=== PATIENT | male | born 1995 | race American Indian/Alaskan Native ===

== ENCOUNTER 2017-07-30 09:45 | Emergency (ER) | payer SELFPAY ==
[2017-07-30 09:57] VITALS: BP 111/53
[2017-07-30] MEDS ORDERED: XYLOCAINE 1% 20 mL INFILTRATI ONE (11:54)
[2017-07-30] MEDS ORDERED: BOOSTRIX IM ONE (11:54)
[2017-07-30] MEDS ORDERED: NACL 0.9% IR ONE (11:56)
--- NOTE | 2017-07-30 12:07 | Emergency Department Report ---
ED Laceration [facility] Chief Complaint: Wound/Laceration Stated Complaint: LEFT HAND FINGER PAIN Time Seen by Provider: 07/30/17 11:53 Occurred When: Today Severity: mild Tetanus Status: Not up to Date Laceration Symptoms: Yes Pain, No Foreign Body Sensation, No Numbness, No Weakness ED Review of Systems ROS: Stated complaint: LEFT HAND FINGER PAIN Other details as noted in HPI Constitutional: denies: chills, fever Eyes: denies: eye pain, eye discharge, vision change ENT: denies: ear pain, throat pain Respiratory: denies: cough, shortness of breath, wheezing Cardiovascular: denies: chest pain, palpitations Endocrine: no symptoms reported Gastrointestinal: denies: abdominal pain, nausea, diarrhea Genitourinary: denies: urgency, dysuria Musculoskeletal: other (laceration left 5th digit ulnar side ). denies: back pain, joint swelling, arthralgia Skin: denies: rash, lesions Neurological: denies: headache, weakness, paresthesias Psychiatric: denies: anxiety, depression Hematological/Lymphatic: denies: easy bleeding, easy bruising ED Past Medical Hx - Past Medical History Previous Medical History?: No - Surgical History Past Surgical History?: No - Social History Smoking Status: Never Smoker Substance Use Type: Alcohol - Medications Home Medications: Home Medications Medication Instructions Recorded Confirmed Last Taken Type Clindamycin [Clindamycin CAP] 300 mg PO BID #20 capsule 03/29/14 Unknown Rx Naproxen [Naprosyn] 250 mg PO BID #14 tablet 03/29/14 Unknown Rx traMADol [Ultram 50 MG tab] 50 mg PO Q6HR PRN #16 tablet 03/29/14 Unknown Rx Ciprofloxacin HCl [Ciprofloxacin 500 mg PO BID #14 tablet 06/23/14 Unknown Rx TAB] traMADol [Ultram] 50 mg PO Q8HR PRN #20 tablet 07/30/17 Unknown Rx Laceration Physical Exam - Exam General: Vital signs noted. No distress. Alert and acting appropriately. Wound Length (cm): 1 Laceration Location: Upper Extremity Laceration Exam: Yes Normal Distal CMS, No Foreign Body, No Exposed Tendon, Vessel, or Nerve, No Tendon Injury ED Course Vital Signs 07/30/17 09:54 Temperature 98.6 F Pulse Rate 59 L Respiratory 18 Rate Blood Pressure 111/53 O2 Sat by Pulse 99 Oximetry - Laceration /Wound Repair Left Volar Finger Wound Location: upper extremity Wound Length (cm): 1 Wound's Depth, Shape: superficial Wound Explored: clean Irrigated w/ Saline (ccs): 30 Betadine Prep?: Yes Anesthesia: 1% Lidocaine Volume Anesthetic (ccs): 2 Wound Debrided: minimal Wound Repaired With: sutures Suture Size/Type: 4:0, nylon Number of Sutures: 3 Layer Closure?: No Sterile Dressing Applied?: Yes Progress: left finger pinky lacaration versus sheet metal no foreign body on xray, rom intact flexion extension adduction abduction no nerve tendon or muscle involvement, laceration anesthesia with 1% lidocaine irrigated with 30 cc sterile saline, closed with 4.0 nylon x 3 sutures all bleeding controlled sterile dressing applied pt tolerated procedure with minimal distress. pt given wound care instructions verbalized understanding of same. 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 Critical care attestation.: If time is entered above; I have spent that time in minutes in the direct care of this critically ill patient, excluding procedure time. ED Disposition Clinical Impression: Laceration of finger of left hand Qualifiers: Encounter type: initial encounter Finger: little finger Damage to nail status: without damage Foreign body presence: without foreign body Qualified Code(s): S61.217A - Laceration without foreign body of left little finger without damage to nail, initial encounter Disposition: DC-01 TO HOME OR SELFCARE Is pt being admited?: No Does the pt Need Aspirin: No Condition: Good Instructions: Laceration (ED), Suture Care (ED) Prescriptions: traMADol [Ultram] 50 mg PO Q8HR PRN #20 tablet PRN Reason: Pain Referrals: NIKKI DELONG MD [Primary Care Provider] - 3-5 Days Forms: Work/School Release Form(ED) Time of Disposition: 12:59
--- NOTE | 2017-07-30 12:29 | XRay Report ---
LEFT FINGERS, 3 views: History: Laceration. The bony architecture is intact. Bony alignment is normal. No soft tissue abnormalities are seen. The joint spaces appear preserved. IMPRESSION: Unremarkable left fingers.
== END 2017-07-30 13:10 | disposition home or self-care (01) ==
LOC: ED 09:45
DX: S61.217A Laceration without foreign body of left little finger without damage to nail, initial encounter (principal); Z88.0 Allergy status to penicillin; X58.XXXA Exposure to other specified factors, initial encounter; Y93.89 Activity, other specified; Y99.8 Other external cause status; Y92.89 Other specified places as the place of occurrence of the external cause
CPT/HCPCS: 90471; 90715